=== PATIENT | male | born 1990 | race Caucasian/White ===

== ENCOUNTER 2021-03-03 08:14 | Emergency (ER) | payer OTHER ==
[2021-03-03] MEDS ORDERED: PEN G BENZ LA 1.2MU/2ML SYRINGE IM ONE (09:15)
--- NOTE | 2021-03-03 10:03 | ER ---
Nurse's Notes [facility] Name: Laureano Rosario Age: 31 yrs Sex: Male : 1990 Arrival Date: 03/03/2021 Time: 08:18 Bed 20 Private MD: Diagnosis: Acute laryngopharyngitis;Acute pharyngitis, unspecified Presentation: 03/03 08:28 Chief complaint: Patient states: "I think I have strep. I had a sore throat a week and ss a half ago. I took somebody's leftover Amoxicillin, but I woke up this morning and it's sore again and my voice is going away." Denies fever. Coronavirus screen: Client denies travel out of the [place] in the last 14 days. Ebola Screen: Patient denies exposure to infectious person. Patient denies travel to an Ebola-affected area in the 21 days before illness onset. Initial Sepsis Screen: Does the patient meet any 2 criteria? No. Patient's initial sepsis screen is negative. Does the patient have a suspected source of infection? No. Patient's initial sepsis screen is negative. Risk Assessment: Do you want to hurt yourself or someone else? Patient reports no desire to harm self or others. Onset of symptoms was February 22, 2021. 08:28 Method Of Arrival: Ambulatory ss 08:28 Acuity: KLEVER 4 ss Historical: - Allergies: 08:29 No Known Allergies; ss - Home Meds: 08:29 None [Active]; ss - PMHx: 08:29 None; ss - PSHx: 08:29 None; ss - Immunization history:: Adult Immunizations unknown. - Social history:: Smoking status: Reported history of juuling and/or vaping. Screenin:28 Abuse screen: Denies threats or abuse. Denies injuries from another. Nutritional ss screening: No deficits noted. Tuberculosis screening: No symptoms or risk factors identified. Never had TB. Fall Risk None identified. Assessment: 08:28 General: Appears in no apparent distress. comfortable, Behavior is calm, cooperative. ss General: Denies fever, feeling ill, fatigue, chills. Pain: Denies pain. Neuro: Level of Consciousness is awake, alert, obeys commands, Oriented to person, place, time, situation. Cardiovascular: Capillary refill < 3 seconds is brisk in bilateral fingers. Respiratory: Airway is patent Trachea midline Respiratory effort is even, unlabored, Respiratory pattern is regular, symmetrical, Breath sounds are clear bilaterally. Denies cough, shortness of breath. GI: Abdomen is non-distended, Patient currently denies diarrhea, nausea, vomiting. : No signs and/or symptoms were reported regarding the genitourinary system. Denies cramping. EENT: Nares are clear Oral mucosa is moist. Throat is reddened bilaterally. EENT: Reports sore throat when swallowing. Derm: Skin is intact, is healthy with good turgor, Skin is Skin is pink, warm \\T\\ dry. normal. Musculoskeletal: Circulation, motion, and sensation intact. Range of motion: intact in all extremities, Swelling. 09:49 Reassessment: Patient appears in no apparent distress at this time. No changes from bw previously documented assessment. Patient and/or family updated on plan of care and expected duration. Pain level reassessed. Patient is alert, oriented x 3, equal unlabored respirations, skin warm/dry/pink. 10:02 Reassessment: Patient appears in no apparent distress at this time. Patient is alert, ss oriented x 3, equal unlabored respirations, skin warm/dry/pink. Strep results back. Awaiting disposition. Vital Signs: 08:28 BP 125 / 82; Pulse 77; Resp 15; Temp 98.7(TE); Pulse Ox 98% on R/A; Weight 90.72 kg; ss Height 6 ft. 3 in. (190.50 cm); Pain 0/10; 09:49 BP 120 / 84; Pulse 79; Resp 16; Pulse Ox 98% on R/A; bw 08:28 Body Mass Index 25.00 (90.72 kg, 190.50 cm) ED Course: 08:18 Patient arrived in ED. mr 08:28 Patient has correct armband on for positive identification. Bed in low position. Call light in reach. 08:29 Triage completed. 08:29 Arm band placed on right wrist. ss 08:37 Ceferino Love MD is Attending Physician. kdr 08:48 Nicole Stephens RN is Primary Nurse. 08:54 Strep Sent. [facility] 08:54 Strep swab sent to lab. [facility] 10:18 No provider procedures requiring assistance completed. Patient did not have IV access ss during this emergency room visit. Administered Medications: 09:05 Drug: Bicillin L-A 1.2 million units Route: IM; Site: left gluteus; 10:02 Follow up: Response: No adverse reaction ss Outcome: 10:02 Discharge ordered by . [facility] 10:18 Discharged to home ambulatory. ss 10:18 Discharge instructions given to patient, Instructed on discharge instructions, follow up and referral plans. Demonstrated understanding of instructions, follow-up care. 10:20 Patient left the ED. ss Signatures: Ceferino Love MD MD kdr Rivera, Mary mr Smirch, Shelby, RN RN Mallorie Hernandez [facility] Mildred Pickens RN RN
--- NOTE | 2021-03-03 10:03 | EDPHYS ---
Physician Documentation [facility] Name: Laureano Rosario Age: 31 yrs Sex: Male : 1990 Arrival Date: 03/03/2021 Time: 08:18 Bed 20 Private MD: ED Physician Ceferino Love HPI: 03/03 16:04 This 31 yrs old Male presents to ER via Ambulatory with complaints of Sore kdr Throat. 16:04 The patient presents with sore throat, dysphagia, of solids. The patient describes kdr throat pain as dry, raw, scratchy. Onset: The symptoms/episode began/occurred gradually, 1.5 week(s) ago. Severity of symptoms: At their worst the symptoms were mild, in the emergency department the symptoms are unchanged. Modifying factors: The symptoms are alleviated by nothing, the symptoms are aggravated by swallowing, Patient's oral intake status: good. Associated signs and symptoms: The patient has no apparent associated signs or symptoms. The patient has experienced similar episodes in the past, a few times. The patient has not recently seen a physician. Took someone else's Amoxicillin for 4 days and his symptoms improved but now they have returned.. Historical: - Allergies: 08:29 No Known Allergies; ss - Home Meds: 08:29 None [Active]; ss - PMHx: 08:29 None; ss - PSHx: 08:29 None; ss - Immunization history:: Adult Immunizations unknown. - Social history:: Smoking status: Reported history of juuling and/or vaping. ROS: 16:04 Constitutional: Negative for fever, chills, and weight loss, Eyes: Negative for injury, kdr pain, redness, and discharge, Neck: Negative for injury, pain, and swelling, Cardiovascular: Negative for chest pain, palpitations, and edema, Respiratory: Negative for shortness of breath, cough, wheezing, and pleuritic chest pain, Abdomen/GI: Negative for abdominal pain, nausea, vomiting, diarrhea, and constipation, Back: Negative for injury and pain, : Negative for injury, bleeding, discharge, and swelling, MS/Extremity: Negative for injury and deformity, Skin: Negative for injury, rash, and discoloration. 16:04 ENT: Positive for sore throat. Exam: 16:04 Constitutional: This is a well developed, well nourished patient who is awake, alert, kdr and in no acute distress. Head/Face: Normocephalic, atraumatic. 16:04 ENT: Posterior pharynx: Uvula: midline, swelling, is not appreciated, erythema, that is mild, exudate, is not appreciated, peritonsillar mass, is not appreciated. Vital Signs: 08:28 BP 125 / 82; Pulse 77; Resp 15; Temp 98.7(TE); Pulse Ox 98% on R/A; Weight 90.72 kg; ss Height 6 ft. 3 in. (190.50 cm); Pain 0/10; 09:49 BP 120 / 84; Pulse 79; Resp 16; Pulse Ox 98% on R/A; bw 08:28 Body Mass Index 25.00 (90.72 kg, 190.50 cm) ss MDM: 10:02 Patient medically screened. kdr 16:14 Data reviewed: vital signs, nurses notes, lab test result(s), radiologic studies. kdr Counseling: I had a detailed discussion with the patient and/or guardian regarding: the historical points, exam findings, and any diagnostic results supporting the discharge/admit diagnosis, lab results, the need for outpatient follow up. 03/03 08:47 Order name: Strep kdr 03/03 09:21 Order name: Throat Culture EDMS Administered Medications: 09:05 Drug: Bicillin L-A 1.2 million units Route: IM; Site: left gluteus; ss 10:02 Follow up: Response: No adverse reaction ss Disposition: 03/03/21 10:02 Discharged to Home. Impression: Acute laryngopharyngitis, Acute pharyngitis, unspecified. - Condition is Stable. - Discharge Instructions: Laryngitis, Pharyngitis, Sore Throat, Upper Respiratory Infection, Adult. - Medication Reconciliation Form, Thank You Letter, Antibiotic Education form. - Follow up: Private Physician; When: 2 - 3 days; Reason: If symptoms return, Further diagnostic work-up, Recheck today's complaints, Continuance of care, Re-evaluation by your physician. - Problem is new. - Symptoms are unchanged. Signatures: Dispatcher [employer] EDMS Ceferino Love MD MD kdr Nicole Stephens RN RN ss Corrections: (The following items were deleted from the chart) 10:20 10:02 03/03/2021 10:02 Discharged to Home. Impression: Acute laryngopharyngitis; Acute ss pharyngitis, unspecified. Condition is Stable. Forms are Medication Reconciliation Form, Thank You Letter, Antibiotic Education, Prescription Opioid Use. Follow up: Private Physician; When: 2 - 3 days; Reason: If symptoms return, Further diagnostic work-up, Recheck today's complaints, Continuance of care, Re-evaluation by your physician. Problem is new. Symptoms are unchanged. kdr
[2021-03-03 10:25] VITALS: TEMP 98.7; O2SAT 98
[2021-03-03 10:26] VITALS: BP 120/84
== END 2021-03-03 10:20 | disposition home or self-care (01) ==
LOC: ER 08:14
DX: J06.0 Acute laryngopharyngitis (principal)
CPT/HCPCS: 87070; 87081; J0561; 96372; 99283